=== PATIENT | female | born 1990 | race African-American/Black ===

== ENCOUNTER 2018-04-08 17:43 | Outpatient (CLI) | payer MEDICAID ==
[2018-04-08 18:33] LABS: APPEARANCE,URINE SLIGHTLY-CLOUDY; BILIRUBIN,URINE NEGATIVE (NEGATIVE); COLOR,URINE YELLOW; GLUCOSE, URINE NEGATIVE (NEGATIVE); KETONES,URINE NEGATIVE (NEGATIVE); LEUKOCYTE ESTERASE,URINE NEGATIVE (NEGATIVE); NITRITE,URINE NEGATIVE (NEGATIVE); PROTEIN,URINE 30 mg/dL (NEGATIVE); URINE AMPHETAMINES SCREEN NEGATIVE; URINE BARBITURATES SCREEN NEGATIVE; URINE BENZODIAZEPINES SCREEN NEGATIVE; URINE COCAINE SCREEN NEGATIVE; URINE MARIJUANA (THC) SCREEN NEGATIVE; URINE METHADONE SCREEN NEGATIVE; URINE PHENCYCLIDINE SCREEN NEGATIVE; URINE SPECIFIC GRAVITY 1.031
[2018-04-08] MEDS ORDERED: ACETAMINOPHEN 650 MG SUPP.RECT PR ONE (18:38)
[2018-04-08] MEDS ORDERED: ACETAMINOPHEN 325 MG TABLET ONE (18:40)
[2018-04-08] MEDS ORDERED: ACETAMINOPHEN 325 MG TABLET PO ONE (18:44)
== END 2018-04-08 20:14 | disposition home or self-care (01) ==
LOC: LC 17:43
PROVIDERS: ATTEND Obstetrics & Gynecology
PROC: 4A1HXCZ Monitoring of Products of Conception, Cardiac Rate, External Approach (ICD-10-PCS; principal; 2018-04-08)
DX: O99.282 Endocrine, nutritional and metabolic diseases complicating pregnancy, second trimester (principal); E86.0 Dehydration; R10.9 Unspecified abdominal pain; Z3A.20 20 weeks gestation of pregnancy; Z91.81 History of falling
CPT/HCPCS: 59899; 81001; 80307; J3490

== ENCOUNTER 2018-05-25 19:26 | Outpatient (CLI) | payer OTHER, MEDICAID ==
[2018-05-25 20:31] LABS: APPEARANCE,URINE SLIGHTLY-CLOUDY; BILIRUBIN,URINE NEGATIVE (NEGATIVE); CALCIUM OXALATE CRYSTALS,URINE MODERATE /HPF; COLOR,URINE YELLOW; GLUCOSE, URINE 50 mg/dL (NEGATIVE); KETONES,URINE NEGATIVE (NEGATIVE); LEUKOCYTE ESTERASE,URINE NEGATIVE (NEGATIVE); NITRITE,URINE NEGATIVE (NEGATIVE); PROTEIN,URINE NEGATIVE (NEGATIVE); URINE SPECIFIC GRAVITY 1.029
[2018-05-25 21:01] LABS: URINE AMPHETAMINES SCREEN NEGATIVE; URINE BARBITURATES SCREEN NEGATIVE; URINE BENZODIAZEPINES SCREEN NEGATIVE; URINE COCAINE SCREEN NEGATIVE; URINE MARIJUANA (THC) SCREEN NEGATIVE; URINE METHADONE SCREEN NEGATIVE; URINE PHENCYCLIDINE SCREEN NEGATIVE
--- NOTE | 2018-05-25 22:46 | RADIOLOGY REPORT (SQ) ---
EXAM DESCRIPTION: US LIMITED COMPLETED DATE/TME: 05/25/2018 00:00 CLINICAL HISTORY: 27 years, Female, cervical length FINDINGS: LEONOR equals 10.1 cm. heart rate is 155 bpm. Single viable IUP is noted. Cervix measures 3.5 cm and demonstrates funneling. 2011 [employer]- All Rights Reserved
[2018-05-25] MEDS ORDERED: BETAMET ACET/BETAMET NA INJ 6 MG/1 ML ONE (23:46)
[2018-05-25] MEDS ORDERED: BETAMET ACET/BETAMET NA INJ 6 MG/1 ML IM ONE (23:55)
== END 2018-05-26 00:04 | disposition home or self-care (01) ==
LOC: LC 19:26
PROVIDERS: ATTEND Obstetrics & Gynecology
PROC: 4A1HXCZ Monitoring of Products of Conception, Cardiac Rate, External Approach (ICD-10-PCS; principal; 2018-05-25)
DX: O47.02 False labor before 37 completed weeks of gestation, second trimester (principal); Z3A.27 27 weeks gestation of pregnancy
CPT/HCPCS: 59899; 96372; 81001; 80307; 76815; J0702

== ENCOUNTER 2018-05-26 23:16 | Outpatient (CLI) | payer OTHER, MEDICAID ==
[2018-05-26] MEDS ORDERED: BETAMET ACET/BETAMET NA INJ 6 MG/1 ML ONE (23:19)
[2018-05-27] MEDS ORDERED: BETAMET ACET/BETAMET NA INJ 6 MG/1 ML IM ONE
== END 2018-05-27 00:44 | disposition home or self-care (01) ==
LOC: LC 23:16
PROVIDERS: ATTEND Obstetrics & Gynecology
PROC: 4A1HXCZ Monitoring of Products of Conception, Cardiac Rate, External Approach (ICD-10-PCS; principal; 2018-05-26)
DX: O47.02 False labor before 37 completed weeks of gestation, second trimester (principal); Z3A.27 27 weeks gestation of pregnancy
CPT/HCPCS: 96372; 59899; J0702

== ENCOUNTER 2018-05-27 14:56 | Emergency (ER) | payer OTHER, MEDICAID ==
--- NOTE | 2018-05-27 15:57 | ER Document Report ---
ED Medical Screen (RME) - General Chief Complaint: Shortness Of Breath Stated Complaint: SHORTNESS OF BREATH Time Seen by Provider: 05/27/18 15:07 Notes: 27-year-old female patient to the emergency department chief complaint of shortness of breath. Is . History of asthma. Received a shot yesterday but not getting any better. I have greeted and performed a rapid initial assessment of this patient. A comprehensive ED assessment and evaluation of the patient, analysis of test results and completion of the medical decision making process will be conducted by additional ED providers. TRAVEL OUTSIDE OF THE [place] IN LAST 30 DAYS: No - Related Data Allergies/Adverse Reactions: banana Allergy (Verified 05/25/18 21:00) [place] And Derivatives Allergy (Verified 05/27/18 14:57) latex Allergy (Verified 05/25/18 21:00) peanut Allergy (Verified 05/25/18 21:00) pineapple Allergy (Verified 05/27/18 14:57) tomato Allergy (Verified 05/25/18 21:00) Physical Exam - Vital signs Vitals: Temp Pulse Resp BP Pulse Ox 97.5 F 90 20 118/62 96 05/27/18 15:07 05/27/18 15:07 05/27/18 15:07 05/27/18 15:07 05/27/18 15:07 Course - Vital Signs Vital signs: Temp Pulse Resp BP Pulse Ox 97.5 F 90 20 118/62 96 05/27/18 15:07 05/27/18 15:07 05/27/18 15:07 05/27/18 15:07 05/27/18 15:07 Doctor's Discharge - Discharge Referrals: HARI GODOY MD [Primary Care Provider] - Follow up as needed
[2018-05-27 16:26] LABS: ABSOLUTE LYMPHOCYTES (AUTO) 1.3 10^3/uL (0.5-4.7); ABSOLUTE MONOCYTES (AUTO) 1.6 10^3/uL (0.1-1.4); ABSOLUTE NEUT (AUTO) 16.4 10^3/uL (1.7-8.2); HEMATOCRIT 31.2 % (36.0-47.0); HEMOGLOBIN 10.4 g/dL (12.0-15.5); LYMPHOCYTES % (AUTO) 6.7 % (13-45); MEAN CORPUSCULAR HEMOGLOBIN 26.5 pg (27.0-33.4); MEAN CORPUSCULAR HGB CONC 33.5 g/dL (32.0-36.0); MEAN CORPUSCULAR VOLUME 79 fl (80-97); MONOCYTES % (AUTO) 8.2 % (3-13); PLATELET COUNT 250 10^3/uL (150-450); RED BLOOD COUNT 3.93 10^6/uL (3.72-5.28); SEGMENTED NEUTROPHILS % (AUTO) 85.1 % (42-78); TOTAL CELLS COUNTED % (AUTO) 100 %; WHITE BLOOD COUNT 19.3 10^3/uL (4.0-10.5)
[2018-05-27 16:43] LABS: ALANINE AMINOTRANSFERASE 19 U/L (9-52); ALBUMIN 3.6 g/dL (3.5-5.0); ALKALINE PHOSPHATASE 81 U/L (38-126); ANION GAP 12 (5-19); ASPARTATE AMINO TRANSFERASE 22 U/L (14-36); BILIRUBIN,DIRECT 0.2 mg/dL (0.0-0.4); BILIRUBIN,TOTAL 0.3 mg/dL (0.2-1.3); BLOOD UREA NITROGEN 8 mg/dL (7-20); CALCIUM 9.1 mg/dL (8.4-10.2); CARBON DIOXIDE 21 mmol/L (22-30); CHLORIDE 107 mmol/L (98-107); GLUCOSE 108 mg/dL (75-110); SODIUM 139.5 mmol/L (137-145); TOTAL PROTEIN 7.5 g/dL (6.3-8.2)
[2018-05-27] MEDS ORDERED: DEXTROSE 5%-1/2 NORMAL SALINE 1,000 ML IV ONE (18:34)
--- NOTE | 2018-05-27 18:35 | ER Document Report ---
ED Respiratory Problem - General Chief Complaint: Shortness Of Breath Stated Complaint: SHORTNESS OF BREATH Time Seen by Provider: 05/27/18 15:07 Mode of Arrival: Ambulatory Information source: Patient TRAVEL OUTSIDE OF THE [place] IN LAST 30 DAYS: No - HPI Patient complains to provider of: Other - 27-year-old that is currently 27 weeks and 5 days presenting for evaluation of shortness of breath which is developed over the last 2 days after receiving an injection of a steroid for her fetus. She notes some tightness associated with this in the chest but no obvious pain no leg swelling no lightheadedness or diaphoresis no cramps in the abdomen vaginal bleeding dysuria or other obvious symptoms. She is never had anything like this in the past. - Related Data Allergies/Adverse Reactions: banana Allergy (Verified 05/25/18 21:00) [place] And Derivatives Allergy (Verified 05/27/18 14:57) latex Allergy (Verified 05/25/18 21:00) peanut Allergy (Verified 05/25/18 21:00) pineapple Allergy (Verified 05/27/18 14:57) tomato Allergy (Verified 05/25/18 21:00) Past Medical History - General Information source: Patient - Social History Smoking Status: Never Smoker Family History: None Patient has suicidal ideation: No Patient has homicidal ideation: No Pulmonary Medical History: Reports: Hx Asthma Renal/ Medical History: Denies: Hx Peritoneal Dialysis Past Surgical History: Reports: Hx Section, Hx Tonsillectomy Review of Systems - Review of Systems -: Yes All other systems reviewed and negative Physical Exam - Vital signs Vitals: Temp Pulse Resp BP Pulse Ox 97.5 F 90 20 118/62 96 05/27/18 15:07 05/27/18 15:07 05/27/18 15:07 05/27/18 15:07 05/27/18 15:07 - General General appearance: Appears well In distress: None - HEENT Head: Normocephalic Eyes: Normal Conjunctiva: Normal Cornea: Normal Extraocular movements intact: Yes Eyelashes: Normal Pupils: PERRL - Respiratory Respiratory status: No respiratory distress Chest status: Nontender Breath sounds: Normal Chest palpation: Normal - Cardiovascular Rhythm: Regular Heart sounds: Normal auscultation Murmur: No - Abdominal Inspection: Gravid female - Back Back: Normal - Extremities General upper extremity: Normal inspection, Nontender, Normal ROM, Normal strength General lower extremity: Normal inspection, Nontender, Normal ROM, Normal strength - Neurological Neuro grossly intact: Yes Cognition: Normal Orientation: AAOx4 Susi Coma Scale Eye Opening: Spontaneous [place] Coma Scale Verbal: Oriented [place] Coma Scale Motor: Obeys Commands [place] Coma Scale Total: 15 Speech: Normal Cranial nerves: Normal Cerebellar coordination: Normal Motor strength normal: LUE, RUE, LLE, RLE - Psychological Associated symptoms: Normal affect Course - Re-evaluation Re-evalutation: 05/28/18 04:29 27-year-old female presents for evaluation of shortness of breath. Through triage she had ultrasounds of the lower extremities ordered, blood work ordered. On exam she does demonstrate some dyspnea, this is her second presentation for this concern. She does have a leukocytosis which is appreciable on her CBC though this is likely result of her having received 2 steroid shots in the last 2 days. Her work of breathing is normal she is able to speak in full sentences however due to the concern of an underlying PE will obtain a CT PE protocol. Patient's Dopplers of lower extremities are normal, her lab work is otherwise reassuring. She did note that she had decreased movements however on bedside ultrasound the baby does seem to move appropriately and has a regular heart rate at approximately [address] of the chest does not demonstrate any pulmonary embolus. 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 - Vital Signs Vital signs: Temp Pulse Resp BP Pulse Ox 97.9 F 90 19 113/64 99 05/27/18 22:33 05/27/18 15:07 05/27/18 22:33 05/27/18 22:33 05/27/18 22:33 - Laboratory Result Diagrams: 05/27/18 16:12 05/27/18 16:12 Laboratory results interpreted by me: 05/27/18 05/27/18 05/27/18 16:12 16:12 19:46 WBC 19.3 H Hgb 10.4 L Hct 31.2 L MCV 79 L MCH 26.5 L Seg Neutrophils % 85.1 H Lymphocytes % 6.7 L Absolute Neutrophils 16.4 H Absolute Monocytes 1.6 H Carbon Dioxide 21 L Urine Glucose (UA) 50 H Urine Urobilinogen 2.0 H Discharge - Discharge Clinical Impression: Shortness of breath Qualifiers: Weeks of gestation: 27 weeks Qualified Code(s): Z3A.27 - 27 weeks gestation of Decreased movement Qualifiers: Fetus number: single or unspecified fetus Trimester: second trimester Qualified Code(s): O36.8120 - Decreased movements, second trimester, not applicable or unspecified Condition: Good Disposition: HOME, SELF-CARE Instructions: Dyspnea, Nonspecific ([facility]) Additional Instructions: You were seen today in the emergency department for shortness of breath, and evaluation including a physical exam as well as a CT of your chest and other blood tests. You should call your OB doctor tomorrow for a follow-up appointment. Return for any worsening fevers or chills, chest pain, inability to breathe or other symptoms. Forms: Parent Work Note Referrals: HARI GODOY MD [Primary Care Provider] - Follow up as needed
[2018-05-27 20:08] LABS: APPEARANCE,URINE SLIGHTLY-CLOUDY; BILIRUBIN,URINE NEGATIVE (NEGATIVE); COLOR,URINE YELLOW; GLUCOSE, URINE 50 mg/dL (NEGATIVE); KETONES,URINE NEGATIVE (NEGATIVE); LEUKOCYTE ESTERASE,URINE NEGATIVE (NEGATIVE); NITRITE,URINE NEGATIVE (NEGATIVE); PROTEIN,URINE NEGATIVE (NEGATIVE); URINE SPECIFIC GRAVITY 1.019
--- NOTE | 2018-05-27 20:28 | RADIOLOGY REPORT (SQ) ---
EXAM DESCRIPTION: CTA CHEST COMPLETED DATE/TIME: 05/27/2018 8:15 pm REASON FOR STUDY: short of breath COMPARISON: None. TECHNIQUE: CT scan of the chest performed using helical scanning technique with dynamic intravenous contrast injection. Images reviewed with lung, soft tissue and bone windows. Reconstructed coronal and sagittal MPR images reviewed. Additional 3 dimensional post-processing performed to develop Maximal Intensity Projection images (CA P). All images stored on PACS. All CT scanners at this facility use dose modulation, iterative reconstruction, and/or weight based d osing when appropriate to reduce radiation dose to as low as reasonably achievable (ALARA). [facility]: Dose Right [facility]: CareDose [facility]: Dose Right [facility]: Teradose 4D [facility]: 8 [employer] CONTRAST TYPE AND DOSE: contrast/concentration: Isovue 350.00 mg/ml; Total Contrast Delivered: 75.0 ml; Total Saline Delivered: 70.0 ml Contrast bolus optimized for the pulmonary arteries. Not diagnostic for the aorta. RENAL FUNCTION: BUN 8 creatinine 0.6 RADIATION DOSE: CT Rad equipment meets quality standard of care and radiation dose reduction techniq ues were employed. CTDIvol: 9.9 - 24.0 mGy. DLP: 746 mGy-cm. . LIMITATIONS: None. FINDINGS: LUNGS AND PLEURA: No masses, infiltrates, or pneumothorax. No pleural effusions or pleura l calcifications. AORTA AND GREAT VESSELS: No aneurysm. Contrast bolus not optimized for the aorta. HEART: No pericardial effusion. No significant coronary artery calcifications. PULMONARY ARTERIES: No emboli visualized in the main pulmonary arteries or the segmental branches. HILAR AND MEDIASTINAL STRUCTURES: No identified masses or abnormal nodes. HARDWARE: None in the chest. UPPER ABDOMEN: No significant findings. Limited exam. THYROID AND OTHER SOFT TISSUES: No masses. No adenopathy. BONES: No acute or significant finding. 3D MIPS: Confirm above findings. OTHER: No other significant finding. IMPRESSION: NORMAL CTA OF THE CHEST. NO PULMONARY EMBOLI. COMMENT: Quality ID # [id number]: Final reports with documentation of one or more dose reduction techniques (e.g., Automated exposure control, adjustment of the mA and/or kV according to patient size, use of iterative reconstruction technique) TECHNICAL DOCUMENTATION: JOB ID: [id number] 1944 [employer]- All Rights Reserved Reading location - IP/workstation name: [email or web address]
[2018-05-27 22:39] VITALS: BP 113/64
--- NOTE | 2018-05-28 08:28 | XCELERA REPORT ---
[address] [facility] [address] Lower Extremity Venous Evaluation Procedure: Color flow and duplex imaging bilaterally of the veins of the lower extremities as well as the Common Femoral veins. Right Sided Venous Evaluation Normal vessel filling wall to wall, compression and augmentation as well as Colour flow down to the infrageniculate veins. Left Sided Venous Evaluation Normal vessel filling wall to wall, compression and augmentation as well as Colour flow down to the infrageniculate veins. Interpretation Summary No duplex evidence of DVT or obstruction in the bilateral lower extremities. Name: KAIN ALMODOVAR Age: 27 yrs Gender: Female : 1990 Patient Status: Emergency Patient Location: ER Study Date: 05/27/2018 06:48 PM Reason For Study: valarie campuzano Ordering Physician: DOREEN TALBOT Performed By: Alicia Oconnell : DOREEN TALBOT > Ryan Hector
== END 2018-05-27 22:42 | disposition home or self-care (01) ==
LOC: ER 14:56
DX: O99.512 Diseases of the respiratory system complicating pregnancy, second trimester (principal); J45.909 Unspecified asthma, uncomplicated; O26.892 Other specified pregnancy related conditions, second trimester; R06.02 Shortness of breath; R07.89 Other chest pain; O36.8120 Decreased fetal movements, second trimester, not applicable or unspecified; Z3A.25 25 weeks gestation of pregnancy; O99.112 Other diseases of the blood and blood-forming organs and certain disorders involving the immune mechanism complicating pregnancy, second trimester; D72.829 Elevated white blood cell count, unspecified; Z91.018 Allergy to other foods; Z91.040 Latex allergy status; Z91.010 Allergy to peanuts
CPT/HCPCS: 36415; 71275; 80053; 81001; 85025; 93970; 96360; 99285

== ENCOUNTER 2018-06-14 20:16 | Outpatient (CLI) | payer OTHER, MEDICAID ==
[2018-06-14 20:56] LABS: APPEARANCE,URINE SLIGHTLY-CLOUDY; BILIRUBIN,URINE NEGATIVE (NEGATIVE); COLOR,URINE YELLOW; GLUCOSE, URINE NEGATIVE (NEGATIVE); KETONES,URINE NEGATIVE (NEGATIVE); LEUKOCYTE ESTERASE,URINE NEGATIVE (NEGATIVE); NITRITE,URINE NEGATIVE (NEGATIVE); PROTEIN,URINE NEGATIVE (NEGATIVE); URINE SPECIFIC GRAVITY 1.023
[2018-06-14] MEDS ORDERED: ACETAMINOPHEN 325 MG TABLET PO ONE (21:03)
[2018-06-14 21:10] LABS: URINE AMPHETAMINES SCREEN NEGATIVE; URINE BARBITURATES SCREEN NEGATIVE; URINE BENZODIAZEPINES SCREEN NEGATIVE; URINE COCAINE SCREEN NEGATIVE; URINE MARIJUANA (THC) SCREEN NEGATIVE; URINE METHADONE SCREEN NEGATIVE; URINE PHENCYCLIDINE SCREEN NEGATIVE
[2018-06-14] MEDS ORDERED: ACETAMINOPHEN 325 MG TABLET ONE ×3 (21:12→21:13)
== END 2018-06-14 21:53 | disposition home or self-care (01) ==
LOC: LC 20:16
PROVIDERS: ATTEND Obstetrics & Gynecology
PROC: 4A1HXCZ Monitoring of Products of Conception, Cardiac Rate, External Approach (ICD-10-PCS; principal; 2018-06-14)
DX: O47.03 False labor before 37 completed weeks of gestation, third trimester (principal); O21.2 Late vomiting of pregnancy; Z3A.30 30 weeks gestation of pregnancy
CPT/HCPCS: 80307; 81001

== ENCOUNTER 2018-07-12 20:12 | Emergency (ER) | payer OTHER, MEDICAID ==
[2018-07-12] MEDS ORDERED: MECLIZINE HCL 25 MG TABLET PO ONE (20:38)
--- NOTE | 2018-07-12 20:39 | ER Document Report ---
ED Medical Screen (RME) - General Chief Complaint: Headache Stated Complaint: DIZZY/HEADACHE Time Seen by Provider: 07/12/18 20:33 Notes: 27-year-old female patient who is 34 weeks . She reports onset last night of dizziness. She notes it is worse when she lays down. She states it feels like when you are trying to get drunk and things are spinning. I had the patient follow my finger with her eyes and noted some slight lateral gaze nystagmus. I had her look up and down and side to side rapidly and she looked at me wanting to know "what are you doing that for". It provokes the dizziness and made the room spin and increased her nystagmus. She will be given a dose of meclizine and moved to the pod 5 for further evaluation once the medicine starts to work. I have greeted and performed a rapid initial assessment of this patient. A comprehensive ED assessment and evaluation of the patient, analysis of test results and completion of the medical decision making process will be conducted by additional ED providers. TRAVEL OUTSIDE OF THE [place] IN LAST 30 DAYS: No - Related Data Allergies/Adverse Reactions: banana Allergy (Verified 07/12/18 20:14) [place] And Derivatives Allergy (Verified 07/12/18 20:14) latex Allergy (Verified 07/12/18 20:14) peanut Allergy (Verified 07/12/18 20:14) pineapple Allergy (Verified 07/12/18 20:14) tomato Allergy (Verified 07/12/18 20:14) Past Medical History - Social History Frequency of alcohol use: None Pulmonary Medical History: Reports: Hx Asthma Renal/ Medical History: Denies: Hx Peritoneal Dialysis Past Surgical History: Reports: Hx Section, Hx Tonsillectomy Physical Exam - Vital signs Vitals: Temp Pulse Resp BP Pulse Ox 98.4 F 91 18 117/61 95 07/12/18 20:22 07/12/18 20:22 07/12/18 20:22 07/12/18 20:22 07/12/18 20:22 Course - Vital Signs Vital signs: Temp Pulse Resp BP Pulse Ox 98.4 F 91 18 117/61 95 07/12/18 20:22 07/12/18 20:22 07/12/18 20:22 07/12/18 20:22 07/12/18 20:22 Doctor's Discharge - Discharge Referrals: TIKA RUIZ MD [Primary Care Provider] - Follow up as needed
[2018-07-12] MEDS ORDERED: METOCLOPRAMIDE HCL INJ/PF 10 MG/2 ML SDV IV ONE (20:57)
[2018-07-12] MEDS ORDERED: NORMAL SALINE 1000 ML 1,000 ML IV ONE (20:57)
--- NOTE | 2018-07-12 21:37 | ER Document Report ---
ED Headache - General Chief Complaint: Headache Stated Complaint: DIZZY/HEADACHE Time Seen by Provider: 07/12/18 20:33 Notes: Patient is a 27-year old female at 34 weeks who presents with complaints of a global headache and associated vertigo. The patient states that the headache was a gradual onset headache and is a throbbing, aching, constant, bitemporal headache. She notes that with a headache she has had a mild sensation of vertigo. States that she has had similar symptoms in the past both in terms of the headache as well as having vertigo with headaches. She has been nauseated but has not vomited. She denies any associated weakness, numbness, fever, constitutional symptoms or confusion. No head trauma. She has not seen her general doctor regarding today's concerns. She denies that this headache is more severe than headaches she has had in the past. TRAVEL OUTSIDE OF THE [place] IN LAST 30 DAYS: No - Related Data Allergies/Adverse Reactions: banana Allergy (Verified 07/12/18 20:14) [place] And Derivatives Allergy (Verified 07/12/18 20:14) latex Allergy (Verified 07/12/18 20:14) peanut Allergy (Verified 07/12/18 20:14) pineapple Allergy (Verified 07/12/18 20:14) tomato Allergy (Verified 07/12/18 20:14) Past Medical History - General Information source: Patient - Social History Smoking Status: Never Smoker Frequency of alcohol use: None Drug Abuse: None Lives with: Family Family History: Reviewed & Not Pertinent Patient has suicidal ideation: No Patient has homicidal ideation: No Pulmonary Medical History: Reports: Hx Asthma Renal/ Medical History: Denies: Hx Peritoneal Dialysis Past Surgical History: Reports: Hx Section, Hx Tonsillectomy Review of Systems - Review of Systems Notes: Constitutional: Negative for fever. HENT: Negative for sore throat. Eyes: Negative for visual changes. Cardiovascular: Negative for chest pain. Respiratory: Negative for shortness of breath. Gastrointestinal: Negative for abdominal pain, vomiting or diarrhea. Genitourinary: Negative for dysuria. Musculoskeletal: Negative for back pain. Skin: Negative for rash. Neurological: Positive for headache and vertigo 10 point ROS negative except as marked above and in HPI. Physical Exam - Vital signs Vitals: Temp Pulse Resp BP Pulse Ox 98.4 F 91 18 117/61 95 07/12/18 20:22 07/12/18 20:22 07/12/18 20:22 07/12/18 20:22 07/12/18 20:22 Interpretation: Normal Notes: PHYSICAL EXAMINATION: GENERAL: Well-appearing, well-nourished and in no acute distress. HEAD: Atraumatic, normocephalic. EYES: Pupils equal round and reactive to light, extraocular movements intact, sclera anicteric, conjunctiva are normal. ENT: nares patent, oropharynx clear without exudates. Moist mucous membranes. NECK: Normal range of motion, supple without lymphadenopathy LUNGS: Breath sounds clear to auscultation bilaterally and equal. No wheezes rales or rhonchi. HEART: Regular rate and rhythm without murmurs ABDOMEN: Soft, gravid uterus, nontender, normoactive bowel sounds. No guarding , no rebound. No masses appreciated. EXTREMITIES: Normal range of motion, no pitting or edema. No cyanosis. NEUROLOGICAL: Face symmetric. Tongue protrudes midline. Extraocular motions intact. Pupils are 2 mm and equally reactive. Normal speech, normal gait. 5 out of 5 strength in both the distal and proximal upper and lower extremities bilaterally. Sensation is grossly intact throughout. Finger to nose testing normal. Pronator drift normal. PSYCH: Normal mood, normal affect. SKIN: Warm, Dry, normal turgor, no rashes or lesions noted. Course - Re-evaluation Re-evalutation: 07/12/18 21:37 Presentation of a headache that appears to be most consistent with tension versus migrainous type headache. Patient does report some mild associated vertigo which she has had in the past with headaches. Headache was not maximal in onset, patient has no focal neurologic deficits, no nuchal rigidity, vital signs within normal limits, no papilledema, and patient is overall well in appearance. Based on clinical history and examination I do not suspect an acute subarachnoid hemorrhage, dural venous sinus thrombosis, acute meningitis, or intercranial mass. Given my low clinical suspicion for any acute life- threatening etiology, I do not feel advanced neuro imaging or laboratory testing is indicated at this time. Will proceed with headache cocktail and reassess. 07/12/18 22:35 Patient has had complete resolution of her headache and vertigo. Remains without any neurologic deficits. Requesting to go home. At this time will discharge with return precautions and follow-up recommendations. Verbal discharge instructions given a the bedside and opportunity for questions given. Medication warnings reviewed. Patient is in agreement with this plan and has verbalized understanding of return precautions and the need for primary care follow-up in the next 24-72 hours. - Vital Signs Vital signs: Temp Pulse Resp BP Pulse Ox 98.4 F 78 16 105/54 L 99 07/12/18 20:22 07/12/18 22:00 07/12/18 22:00 07/12/18 22:00 07/12/18 22:00 Discharge - Discharge Clinical Impression: Third trimester , Vertigo Headache Qualifiers: Headache type: unspecified Headache chronicity pattern: acute headache Intractability: not intractable Qualified Code(s): R51 - Headache Condition: Good Disposition: HOME, SELF-CARE Additional Instructions: You have been seen in the Emergency Department (ED) for a headache. Please use Tylenol (acetaminophen) as needed for symptoms, but only as written on the box. As we have discussed, please follow up with your primary care doctor as soon as possible regarding today's ED visit and your headache symptoms. Call your doctor or return to the ED if you have a worsening headache, sudden and severe headache, confusion, slurred speech, facial droop, weakness or numbness in any arm or leg, extreme fatigue, or other symptoms that concern you. Referrals: TIKA RUIZ MD [Primary Care Provider] - Follow up as needed
[2018-07-12 23:12] VITALS: BP 105/54
== END 2018-07-12 22:55 | disposition home or self-care (01) ==
LOC: ER 20:12
DX: O26.93 Pregnancy related conditions, unspecified, third trimester (principal); R51 Headache; R42 Dizziness and giddiness; Z3A.34 34 weeks gestation of pregnancy
CPT/HCPCS: 99284; 96361; 96374; J2765; J7030

== ENCOUNTER 2018-08-04 14:25 | Outpatient (CLI) | payer OTHER, MEDICAID ==
[2018-08-04 16:05] LABS: ABSOLUTE EOSINOPHILS # (AUTO) 0.1 10^3/uL (0.0-0.6); ABSOLUTE LYMPHOCYTES (AUTO) 1.7 10^3/uL (0.5-4.7); ABSOLUTE MONOCYTES (AUTO) 0.7 10^3/uL (0.1-1.4); ABSOLUTE NEUT (AUTO) 4.8 10^3/uL (1.7-8.2); BASOPHILS % (AUTO) 0.1 % (0-2); EOSINOPHILS % (AUTO) 1.4 % (0-6); HEMATOCRIT 29.5 % (36.0-47.0); HEMOGLOBIN 9.5 g/dL (12.0-15.5); LYMPHOCYTES % (AUTO) 22.8 % (13-45); MEAN CORPUSCULAR HEMOGLOBIN 24.8 pg (27.0-33.4); MEAN CORPUSCULAR HGB CONC 32.1 g/dL (32.0-36.0); MEAN CORPUSCULAR VOLUME 77 fl (80-97); MONOCYTES % (AUTO) 9.6 % (3-13); PLATELET COUNT 216 10^3/uL (150-450); RED BLOOD COUNT 3.81 10^6/uL (3.72-5.28); RED CELL DISTRIBUTION WIDTH 15.4 % (11.5-14.0); SEGMENTED NEUTROPHILS % (AUTO) 66.1 % (42-78); TOTAL CELLS COUNTED % (AUTO) 100 %; WHITE BLOOD COUNT 7.3 10^3/uL (4.0-10.5)
[2018-08-04 16:15] LABS: ALANINE AMINOTRANSFERASE 12 U/L (9-52); ALBUMIN 3.3 g/dL (3.5-5.0); ALKALINE PHOSPHATASE 117 U/L (38-126); ANION GAP 9 (5-19); ASPARTATE AMINO TRANSFERASE 23 U/L (14-36); BILIRUBIN,DIRECT 0.2 mg/dL (0.0-0.4); BILIRUBIN,TOTAL 0.2 mg/dL (0.2-1.3); BLOOD UREA NITROGEN 7 mg/dL (7-20); CARBON DIOXIDE 25 mmol/L (22-30); CHLORIDE 105 mmol/L (98-107); GLUCOSE 113 mg/dL (75-110); POTASSIUM 3.8 mmol/L (3.6-5.0); SODIUM 138.8 mmol/L (137-145); TOTAL PROTEIN 6.7 g/dL (6.3-8.2); URIC ACID 3.9 mg/dL (2.5-6.2)
[2018-08-04 16:24] LABS: APPEARANCE,URINE CLEAR; BILIRUBIN,URINE NEGATIVE (NEGATIVE); COLOR,URINE STRAW; GLUCOSE, URINE NEGATIVE (NEGATIVE); KETONES,URINE NEGATIVE (NEGATIVE); LEUKOCYTE ESTERASE,URINE NEGATIVE (NEGATIVE); NITRITE,URINE NEGATIVE (NEGATIVE); PROTEIN,URINE NEGATIVE (NEGATIVE); URINE SPECIFIC GRAVITY 1.003; UROBILINOGEN,URINE NEGATIVE mg/dL (<2.0)
[2018-08-04] MEDS ORDERED: ACETAMINOPHEN 325 MG TABLET ONE (16:31)
[2018-08-04] MEDS ORDERED: ACETAMINOPHEN 325 MG TABLET PO ONE (16:34)
[2018-08-04 16:44] LABS: URINE AMPHETAMINES SCREEN NEGATIVE; URINE BARBITURATES SCREEN NEGATIVE; URINE BENZODIAZEPINES SCREEN NEGATIVE; URINE COCAINE SCREEN NEGATIVE; URINE MARIJUANA (THC) SCREEN NEGATIVE; URINE METHADONE SCREEN NEGATIVE; URINE PHENCYCLIDINE SCREEN NEGATIVE
[2018-08-04 16:54] LABS: UR PRO/CREAT RATIO RESULT 0.7 mg/mg (0.0-0.2); URINE CREATININE 23.8 mg/dL (16-327); URINE PROTEIN 16.2 mg/dL (<12)
== END 2018-08-04 17:45 | disposition home or self-care (01) ==
LOC: LC 14:25
PROVIDERS: ATTEND Obstetrics & Gynecology
PROC: 4A1HXCZ Monitoring of Products of Conception, Cardiac Rate, External Approach (ICD-10-PCS; principal; 2018-08-04)
DX: O16.3 Unspecified maternal hypertension, third trimester (principal); Z3A.37 37 weeks gestation of pregnancy
CPT/HCPCS: 36415; 59025; 80053; 80307; 81005; 82570; 83615; 84156; 84550; 85025

== ENCOUNTER 2018-08-05 17:37 | Inpatient (IN) | payer OTHER, MEDICAID ==
--- NOTE | 2018-08-05 17:44 | Non Stress Test Report ---
Non Stress Test Datetime Report Generated by CPN: 08/05/2018 17:44 DEMOGRAPHIC EGA NST: 37.2 INDICATION Indication for Study: Other Indication for Study (NST) Other: LC MONITORING Monitor Explained: Monitor Explained; Test Explained; Patient Verbalized Understanding Time on Monitor: 08/04/2018 14:55 Time off Monitor: 08/04/2018 15:26 NST Duration: 31 NST INTERVENTIONS NST Interventions: PO Hydration Physician Notified NST: J Kaur CNM BABY A: [id number] BABY A Movement : Present Contraction Frequency : rare FHR Baseline : 135 Accelerations : 15X15 Decelerations : None Variability : Moderate 6-25bpm NST Review: Meets Criteria for Reactive NST NST Review and Verified By : ALEXSANDER ORTEGA, RN NST Results: Reactive NST REPORT Report Trigger: Send Report
[2018-08-05 18:16] LABS: URINE PROTEIN 15.1 mg/dL (<12)
[2018-08-05 18:21] LABS: 24 HOUR URINE PROTEIN RESULT 477 mg/day (42-225)
--- NOTE | 2018-08-05 18:21 | Non Stress Test Report ---
Non Stress Test Datetime Report Generated by CPN: 08/05/2018 18:21 DEMOGRAPHIC EGA NST: 37.3 INDICATION Indication for Study: Ordered by Provider MONITORING Monitor Explained: Monitor Explained; Test Explained; Patient Verbalized Understanding Time on Monitor: 08/05/2018 17:47 Time off Monitor: 08/05/2018 18:12 NST Duration: 25 NST INTERVENTIONS NST Interventions: PO Hydration Physician Notified NST: Dr Younger BABY A Movement : Present Contraction Frequency : x1 FHR Baseline : 135 Accelerations : 15X15 Decelerations : None Variability : Moderate 6-25bpm NST Review: Meets Criteria for Reactive NST NST Review and Verified By : JOSE Hess NST Results: Reactive NST REPORT Report Trigger: Send Report
--- NOTE | 2018-08-05 18:52 | Admission Physical ---
Datetime Report Generated by CPN: 08/05/2018 18:51 CURRENT ADMISSION Chief Complaint: Other Indication for Induction: Not Applicable; PreEclampsia Admit Impression : Term, Intrauterine ; Repeat Section Admit Impression- Other: Pre-eclampsia Admit Plan: Admit to Unit; Initiate Section Protocol ALLERGIES Medication Allergies: No Medication Allergies: [place] And Derivatives (08/04/2018); peanut (08/04/2018); pineapple (08/04/2018); banana (08/04/2018); latex (08/04/2018); tomato (08/04/2018) Latex: No Latex Allergies Food Allergies: Peanut butter, tomatoes, banana, pineapples, citrus, OBSTETRICAL HISTORY EDC: 08/23/2018 00:00 : 3 Para: 2 Term: 2 : 0 SAB: 0 IAB: 0 Ectopic: 0 Livin Cesareans: 2 VBACs: 0 Multiple Births: 0 Gestational Diabetes: No Rh Sensitization: No Incompetent Cervix: No ALY: No Infertility: No ART Treatment: No Uterine Anomaly: No IUGR: No Hx Previous C/S: Yes Macrosomia: No Hx Loss/Stillborn: No PIH: No Hx : No Placenta Previa/Abruption: No Depression/PP Depression: Yes PTL/PROM: No Post Hemorrhage: No Current Procedures: Ultrasound Obstetrical History Comments: G1 2010 41.5 boy 7lbs, 11 oz, scheduled G2 2013 40.1 boy, 7lbs, 11 oz, G3 current SEE RECORDS Alcohol: No Marijuana : No Cocaine: No Other Illicit Drugs: No Cigarettes: Never Smoker. 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 Heart Disease: No Hosp/Surgery: Yes Autoimmune Disorder: No Anesthetic Complications: No Kidney Disease: Yes Abnormal Pap Smear: No Neuro/Epilepsy: No Other Medical Diseases: No Hepatitis/Liver Disease: No Significant Family History: No Varicosities/Phlebitis: No Trauma/Violence : No Thyroid Dysfunction: No Medical History Comments: PPD after first baby, UTI (last one during this ); hospitalized for childbirth; needed D_C to remove mirena INFECTIOUS HISTORY Gonorrhea: No Genital Herpes: No Chlamydia: No Tuberculosis: No Syphilis: No Hepatitis: No HIV/AIDS Exposure: No Rash or Viral Illness: No HPV: No Infectious History Comments: trich x 2 this PHYSICAL EXAM General: Normal HEENT: Normal Neurologic: Normal Thyroid: Normal Heart: Normal Lungs: Normal Breast: Normal Back: Normal Abdomen: Normal Genitourinary Exam: Normal Extremities: Normal DTRs: Normal Pelvic Type: Adequate Vital Signs: Reviewed MEMBRANES Membranes: Intact FETUS A EGA: 37.3 Monitoring: External US FHR- Baseline: 140s Accelerations: 15X15 Decelerations: None FHR Category: Category I Admit Comment: Pt submitted her 24 hr urine, which was 477 mg of proteinuria. INFORMED CONSENT Informed Consent Obtained: Section Delivery Signature: with User ID: [email or web address]
--- NOTE | 2018-08-05 18:55 | L&D Progress Notes ---
PROGRESS NOTES Datetime Report Generated by CPN: 08/05/2018 18:54 PROGRESS NOTE Impression: Eclampsia - Mild Plan: Deliver- Section Informed Consent Obtained: Section Delivery Vital Signs : Reviewed; Within Normal Limits Comment: Pt here today to submit her 24hr urine. She has had elevated BPs in the office. Today, her BP is normal. She is a repeat C/S. According to ACOG guidelines, she should be delivered at 37 weeks for an optimal outcome. Pt is agreeble to this plan and desires permanent sterilization. LAST VAGINAL EXAM-NURSING Dilitation: FT Effacement: Thick Station: High Contractions: Uterine Irritability Contractions: MEMBRANES Membranes: Intact FETUS A FHR - Baseline: 140s Monitoring: External US Variability: Moderate 6-25bpm Accelerations: 15X15 Decelerations: None FHR Category: Category I : 37.3 SIGNATURE SIGNATURE: [id number];[id number];[id number] SIGNATURE: [id number];[id number] SIGNATURE: [id number] SIGNATURE: [id number] Signature: with User ID: [email or web address]
[2018-08-05] MEDS ORDERED: CITRIC ACID/SODIUM CITRATE ORAL SOLN 15 ML UDCUP ONE (19:26)
[2018-08-05] MEDS ORDERED: CEFAZOLIN 2 GM/D5W RTU 2 GM/50 ML RTUPB IV ONE (19:26)
[2018-08-05] MEDS ORDERED: RINGERS SOLUTION,LACTATED 1,000 ML IV PRN ×2 (19:37→20:48)
[2018-08-05] MEDS ORDERED: CEFAZOLIN 2 GM/D5W RTU 2 GM/50 ML RTUPB IV PRN (19:37)
[2018-08-05] MEDS ORDERED: ONDANSETRON HCL INJ/PF 4 MG/2 ML SDV ONE (19:37)
[2018-08-05] MEDS ORDERED: CITRIC ACID/SODIUM CITRATE ORAL SOLN 15 ML UDCUP PO PRN (19:37)
[2018-08-05 19:38] LABS: ABSOLUTE EOSINOPHILS # (AUTO) 0.1 10^3/uL (0.0-0.6); ABSOLUTE LYMPHOCYTES (AUTO) 1.8 10^3/uL (0.5-4.7); ABSOLUTE MONOCYTES (AUTO) 0.9 10^3/uL (0.1-1.4); ABSOLUTE NEUT (AUTO) 5.3 10^3/uL (1.7-8.2); BASOPHILS % (AUTO) 0.1 % (0-2); EOSINOPHILS % (AUTO) 1.6 % (0-6); HEMATOCRIT 30.2 % (36.0-47.0); HEMOGLOBIN 9.6 g/dL (12.0-15.5); LYMPHOCYTES % (AUTO) 22.6 % (13-45); MEAN CORPUSCULAR HEMOGLOBIN 24.7 pg (27.0-33.4); MEAN CORPUSCULAR HGB CONC 31.8 g/dL (32.0-36.0); MEAN CORPUSCULAR VOLUME 78 fl (80-97); MONOCYTES % (AUTO) 10.8 % (3-13); PLATELET COUNT 213 10^3/uL (150-450); RED BLOOD COUNT 3.89 10^6/uL (3.72-5.28); RED CELL DISTRIBUTION WIDTH 15.8 % (11.5-14.0); SEGMENTED NEUTROPHILS % (AUTO) 64.9 % (42-78); TOTAL CELLS COUNTED % (AUTO) 100 %; WHITE BLOOD COUNT 8.1 10^3/uL (4.0-10.5)
[2018-08-05] MEDS ORDERED: ONDANSETRON HCL INJ/PF 4 MG/2 ML SDV IV ONE (19:38)
[2018-08-05 19:49] LABS: ALANINE AMINOTRANSFERASE 14 U/L (9-52); ALBUMIN 3.3 g/dL (3.5-5.0); ALKALINE PHOSPHATASE 116 U/L (38-126); ANION GAP 10 (5-19); ASPARTATE AMINO TRANSFERASE 26 U/L (14-36); BILIRUBIN,DIRECT 0.2 mg/dL (0.0-0.4); BILIRUBIN,TOTAL 0.2 mg/dL (0.2-1.3); BLOOD UREA NITROGEN 10 mg/dL (7-20); CALCIUM 9.4 mg/dL (8.4-10.2); CARBON DIOXIDE 23 mmol/L (22-30); CHLORIDE 106 mmol/L (98-107); GLUCOSE 123 mg/dL (75-110); POTASSIUM 4.1 mmol/L (3.6-5.0); SODIUM 139.2 mmol/L (137-145); TOTAL PROTEIN 6.8 g/dL (6.3-8.2); URIC ACID 3.8 mg/dL (2.5-6.2)
[2018-08-05] MEDS ORDERED: OXYTOCIN 10 UNIT/ML VIAL ONE (20:41)
[2018-08-05] MEDS ORDERED: FENTANYL CITRATE INJ/PF 100 MCG/2 ML AMPUL ONE ×2 (20:41→22:41)
[2018-08-05] MEDS ORDERED: BUPIVACAINE HCL/DEX-WATER/PF 15 MG/2 ML AMPULE ONE (20:41)
[2018-08-05] MEDS ORDERED: MIDAZOLAM 2 MG/2 ML INJ ONE (20:42)
[2018-08-05] MEDS ORDERED: OXYTOCIN/NORMAL SALINE 20 UNIT/1,000 ML RTUINJ ONE (20:42)
[2018-08-05] MEDS ORDERED: MORPHINE SULFATE 10 MG/ML INJ ONE ×2 (20:42→22:05)
[2018-08-05] MEDS ORDERED: OXYCODONE-ACETAMINOPHEN 5-325 MG TABLET PO PRN (20:48)
[2018-08-05] MEDS ORDERED: ACETAMINOPHEN 1,000 MG/100 ML RTUPB IV PRN (20:48)
[2018-08-05] MEDS ORDERED: SIMETHICONE 80 MG TAB.CHEW PO PRN (20:48)
[2018-08-05] MEDS ORDERED: ACETAMINOPHEN 325 MG TABLET PO PRN (20:48)
[2018-08-05] MEDS ORDERED: DIPH/PERTUSS(ACELL)/TETANUS VAC/PF 0.5 ML SYR (>=10YO) IM PRN (20:48)
[2018-08-05] MEDS ORDERED: PROMETHAZINE HCL INJ 25 MG/1 ML VIAL IV PRN ×3 (20:48→21:16)
[2018-08-05] MEDS ORDERED: MEASLES,MUMPS&RUBELLA VACC/PF 0.5 ML VIAL SUBCUT PRN (20:48)
[2018-08-05] MEDS ORDERED: OXYTOCIN/NORMAL SALINE 20 UNIT/1,000 ML RTUINJ IV PRN (20:48)
[2018-08-05] MEDS ORDERED: FENTANYL CITRATE INJ/PF 100 MCG/2 ML AMPUL IV PRN ×3 (21:16)
[2018-08-05] MEDS ORDERED: DIPHENHYDRAMINE HCL 50 MG/ML VIAL IV PRN (21:16)
[2018-08-05] MEDS ORDERED: MEPERIDINE HCL/PF INJ 25 MG/1 ML DISP.SYRIN IV PRN (21:16)
[2018-08-05] MEDS ORDERED: MORPHINE SULFATE 10 MG/ML INJ IV PRN (21:16)
--- NOTE | 2018-08-05 21:54 | PDOC DELIVERY SUMMARY ---
Delivery Summary - Maternal Hx : III Hx Para: II Hx # Term Pregnancies: 2 Hx # Pregnancies: 0 Hx Total # of Abortions (Sponateous & Elective): 0 Number of Living Children: 2 ARIEL: 08/23/18 Gestational Age: 37.3 Risk Factors: Previous , Pre-Eclampsia Intrapartum: Pre-Eclampsia Ruptured Membranes: AROM Fluids: Clear - Delivery Labor: Not In Labor Presentation: Vertex Heart Rate Monitoring: Done Pre-Operatively Uterine Contraction Monitoring: External Support Person Present: Yes Location: OR : Repeat Placenta: Within Normal Limits Placenta Description: Normal appearing Number of Vessels (Cord): 3 Nuchal Cord: Yes Delivery of Placenta Date: 08/05/18 Estimated Blood Loss: 600 ml Delivery Quantitative Blood Loss (QBL): 900 - Medications Type of Anesthesia:: Spinal - Delivery Personnel MD: YOBANI WILLIAMSON
[2018-08-05] MEDS ORDERED: KETOROLAC TROMETHAMINE INJ/PF 30 MG/1 ML SDV IV SCH (22:00)
--- NOTE | 2018-08-05 22:00 | Operative Report ---
Operative Report DATE OF SURGERY: 08/05/18 PREOPERATIVE DIAGNOSIS: 1. Intrauterine at 37-3/7 weeks. 2. Previous section. 3. Preeclampsia. 4. GBS positive. 5. Anemia. 6. Desires permanent sterilization. 7. Rh+. 8. Rubella immune POSTOPERATIVE DIAGNOSIS: Same OPERATION: 1. Repeat section. 2. Bilateral tubal interruption with Filshie clips SURGEON: YOBANI RAZA ANESTHESIA: Spinal TISSUE REMOVED OR ALTERED: Placenta COMPLICATIONS: None ESTIMATED BLOOD LOSS: 600 ml INTRAOPERATIVE FINDINGS: Female in a cephalic position with nuchal cord x1; Apgars 8, 9 with a weight of 5 pounds 14 ounces; normal appearing uterus, bilateral tubes and ovaries PROCEDURE: The patient was taken to the operating room where spinal anesthesia was obtained and found to be adequate. She was then prepped and draped in the normal sterile fashion and placed in the dorsal supine position with a leftward tilt. A Pfannenstiel skin incision was then made and carried through to the underlying layers of the fascia with the scalpel. The fascia was incised in the midline and the incision extended laterally with the Gomez scissors. The superior aspect of the fascial incision was then grasped with [place] clamps elevated and the underlying rectus muscles dissected off both bluntly and sharply. Attention was then turned to the inferior aspect of the fascial incision which in a similar fashion was grasped, tented up with [place] clamps, and the rectus muscles dissected off both bluntly and sharply. The rectus muscles were then in the midline and the peritoneum at the amount identified and entered [bluntly]. The peritoneal incision was then extended superiorly and inferiorly with good visualization of the bladder. The bladder blade was inserted and the vesicouterine peritoneum identified grasped with [place] pickups and entered sharply with the Metzenbaum scissors. This incision was then extended laterally with the Metzenbaum scissors and a bladder flap created digitally. The bladder blade was then reinserted and the lower uterine segment incised in a transverse fashion with the scalpel. The uterine incision was then extended bluntly and with th bandage scissors. The bladder blade was removed and the infant's head was delivered from cephalic presentation atraumatically. The nose and mouth were suctioned and the cord doubly clamped and cut. The infant was handed off to waiting pediatricians. The placenta was then delivered manually and the uterus exteriorized and cleared of all clots and debris. The uterine incision was then repaired with 0 Vicryl in a running locked fashion. 0-Chromic was used to obtain hemostasis via imbrication of the initial layer. Attention was then turned to her permanent sterilization with the right fallopian tube was grasped with a [place] and followed through to the fimbriated end of the tube. A Filshie clip was then placed in the midportion of the fallopian tube. Hemostasis was noted. The same procedure was performed on the left fallopian tube and hemostasis was also noted. Abdomen was then copiously irrigated with warm normal saline and the uterus was returned to the patient's abdomen. A piece of Interceed was placed overlying the uterine incision, as well as a piece placed vertically on the anterior surface of the uterus, to prevent adhesions. The gutters were cleared of all clots and debris. All operative sites were noted to be hemostatic. The fascia was reapproximated with 0 Vicryl in a running fashion from each lateral edge to the midline. The subcutaneous fat layer was then closed in an interrupted fashion with 3-0 vicryl. The skin was closed with 4-0 Monocryl in a running, subcuticular fashion. The patient tolerated the procedure well. Sponge, lap, needle and instrument counts are correct x 2. 2 g of Ancef were given prior to skin incision. The patient was taken to the recovery area awake and in stable condition.
[2018-08-05] MEDS ORDERED: ACETAMINOPHEN 1,000 MG/100 ML RTUPB IV ONE (22:07)
[2018-08-05] MEDS ORDERED: MEPERIDINE HCL/PF INJ 25 MG/1 ML DISP.SYRIN ONE (22:28)
[2018-08-05] MEDS ORDERED: KETOROLAC TROMETHAMINE INJ/PF 30 MG/1 ML SDV ONE (23:12)
[2018-08-05] MEDS: KETOROLAC TROMETHAMINE INJ/PF 30 MG/1 ML SDV IV SCH (23:19)
[2018-08-06] MEDS: HYDROMORPHONE HCL INJ/PF 2 MG/ML AMPULE IV PRN ×2 (01:31→07:59)
[2018-08-06] MEDS: KETOROLAC TROMETHAMINE INJ/PF 30 MG/1 ML SDV IV SCH ×2 (05:11→13:14)
[2018-08-06] MEDS: OXYCODONE-ACETAMINOPHEN 5-325 MG TABLET PO PRN ×2 (08:15→17:05)
[2018-08-06 08:35] LABS: HEMATOCRIT 26.6 % (36.0-47.0); HEMOGLOBIN 8.7 g/dL (12.0-15.5); MEAN CORPUSCULAR HEMOGLOBIN 25.3 pg (27.0-33.4); MEAN CORPUSCULAR HGB CONC 32.6 g/dL (32.0-36.0); MEAN CORPUSCULAR VOLUME 77 fl (80-97); PLATELET COUNT 183 10^3/uL (150-450); RED BLOOD COUNT 3.43 10^6/uL (3.72-5.28); RED CELL DISTRIBUTION WIDTH 16.2 % (11.5-14.0); WHITE BLOOD COUNT 10.4 10^3/uL (4.0-10.5)
--- NOTE | 2018-08-06 08:50 | PDOC PROGRESS REPORT ---
Subjective-OB Progress Note for:: 08/06/18 Subjective: pt c/o being sore Physical Exam (OB) Vital Signs: Temp Pulse Resp BP Pulse Ox 97.6 F 93 16 104/72 99 08/06/18 08:23 08/06/18 08:23 08/06/18 08:23 08/06/18 08:23 08/06/18 08:23 Intake & Output 08/05/18 08/06/18 08/07/18 06:59 06:59 06:59 Output Total 200 Balance -200 Weight 106 kg - General General Appearance: Appears well - PIH/Pre-Eclampsia DTR's: 2 + Clonus: Negative Headache: Absent Epigastric Pain: No Visual Changes: No - Dressing Removed: No Incision: Dressing Closure Type: pressure d - Lochia Lochia Amount: Scant < 10 ml Lochia Color: Rubra/Red - Abdomen Description: Tender, Soft Hernia Present: No Bowel Sounds: Normoactive Flatus Presence: Absent Fundal Description: Firm Fundal Height: u/u - u/2 - Respiratory Breath sounds: Clear - Extremities Calf: Normal Objective-Diagnostic Laboratory: 08/06/18 07:54 08/05/18 19:08 08/04/18 08/05/18 08/05/18 17:45 19:08 19:08 WBC 8.1 RBC 3.89 Hgb 9.6 L Hct 30.2 L MCV 78 L MCH 24.7 L MCHC 31.8 L RDW 15.8 H Plt Count 213 Seg Neutrophils % 64.9 Lymphocytes % 22.6 Monocytes % 10.8 Eosinophils % 1.6 Basophils % 0.1 Absolute Neutrophils 5.3 Absolute Lymphocytes 1.8 Absolute Monocytes 0.9 Absolute Eosinophils 0.1 Absolute Basophils 0.0 Sodium 139.2 Potassium 4.1 Chloride 106 Carbon Dioxide 23 Anion Gap 10 BUN 10 Creatinine 0.69 Est GFR ( Amer) > 60 Est GFR (Non-Af Amer) > 60 Glucose 123 H Uric Acid 3.8 Calcium 9.4 Total Bilirubin 0.2 AST 26 ALT 14 Alkaline Phosphatase 116 Total Protein 6.8 Albumin 3.3 L Ur 24 Hour Volume 3160 Ur Total Protein 24 Hr 477 H Blood Type Antibody Screen 08/05/18 08/06/18 19:08 07:54 WBC 10.4 RBC 3.43 L Hgb 8.7 L Hct 26.6 L MCV 77 L MCH 25.3 L MCHC 32.6 RDW 16.2 H Plt Count 183 Seg Neutrophils % Lymphocytes % Monocytes % Eosinophils % Basophils % Absolute Neutrophils Absolute Lymphocytes Absolute Monocytes Absolute Eosinophils Absolute Basophils Sodium Potassium Chloride Carbon Dioxide Anion Gap BUN Creatinine Est GFR ( Amer) Est GFR (Non-Af Amer) Glucose Uric Acid Calcium Total Bilirubin AST ALT Alkaline Phosphatase Total Protein Albumin Ur 24 Hour Volume Ur Total Protein 24 Hr Blood Type A POSITIVE Antibody Screen NEGATIVE Assessment and Plan(PN) - Time Spent with Patient Time with patient: Less than 15 minutes - Disposition Anticipated Discharge: Home Within: within 24 hours, within 48 hours
[2018-08-06] MEDS ORDERED: IRON SUCROSE COMPLEX INJ/PF 100 MG/5 ML SDV IV ONE (09:00)
[2018-08-06] MEDS: PRENATAL VITAMIN W DHA CAPSULE PO SCH (10:18)
[2018-08-06] MEDS: DOCUSATE SODIUM 100 MG CAPSULE PO SCH ×2 (10:18→17:06)
[2018-08-06] MEDS: IBUPROFEN 800 MG TABLET PO PRN (21:52)
[2018-08-07] MEDS: IBUPROFEN 800 MG TABLET PO PRN (04:03)
[2018-08-07] MEDS: DOCUSATE SODIUM 100 MG CAPSULE PO SCH (10:04)
[2018-08-07] MEDS: PRENATAL VITAMIN W DHA CAPSULE PO SCH (10:04)
--- NOTE | 2018-08-07 10:44 | PDOC DISCHARGE SUMMARY ---
Final Diagnosis Discharge Date: 08/07/18 - Final Diagnosis (1) Pre-eclampsia Is this a current diagnosis for this admission?: Yes (2) delivery delivered Is this a current diagnosis for this admission?: Yes Discharge Data - Discharge Medication Home Medications: Vit No.124/Iron/Folic [ Vitamin Tablet] 1 each PO DAILY Metronidazole [Flagyl] 500 mg PO DAILY 08/04/18 Ferrous Sulfate [Iron] 325 mg PO DAILY 08/05/18 Reason(s) for Admission: Ceasarean Section-Repeat, Obstetric Complications Procedures: NST Intrapartum Procedure(s): : Low Cervical, Transverse - Diagnosis Test Laboratory: Temp Pulse Resp BP Pulse Ox 98.2 F 90 18 112/66 97 08/07/18 08:05 08/07/18 08:05 08/07/18 08:05 08/07/18 08:05 08/07/18 08:05 08/05/18 08/06/18 19:08 07:54 RBC 3.89 3.43 L Hgb 9.6 L 8.7 L Hct 30.2 L 26.6 L - Discharge information/Instructions Discharge Activity: Balance Activity w/Rest, No Lifting Over 10 Pounds, No Lifting/Push/Pulling, Pelvic Rest, No tub bath Discharge Diet: Regular Disposition: HOME, SELF-CARE Follow [facility] with: [facility] in: 5, Days
[2018-08-07 11:30] VITALS: BP 112/71
[2018-08-07] MEDS: OXYCODONE-ACETAMINOPHEN 5-325 MG TABLET PO PRN (12:29)
== END 2018-08-07 15:20 | disposition home or self-care (01) | DRG 785 ==
LOC: LC 17:37 → LR 18:52 → 2S 23:49
PROVIDERS: ADMIT Obstetrics & Gynecology; ATTEND Obstetrics & Gynecology
PROC: 10D00Z1 Extraction of Products of Conception, Low, Open Approach (ICD-10-PCS; principal; 2018-08-05)
PROC: 0UL70CZ Occlusion of Bilateral Fallopian Tubes with Extraluminal Device, Open Approach (ICD-10-PCS; 2018-08-05)
PROC: 4A1HXCZ Monitoring of Products of Conception, Cardiac Rate, External Approach (ICD-10-PCS; 2018-08-05)
DX: O14.04 Mild to moderate pre-eclampsia, complicating childbirth (principal); Z30.2 Encounter for sterilization; O99.824 Streptococcus B carrier state complicating childbirth; Z91.018 Allergy to other foods; Z91.010 Allergy to peanuts; Z3A.37 37 weeks gestation of pregnancy; Z37.0 Single live birth
CPT/HCPCS: 1961; 36415; 80053; 83615; 84156; 84550; 85025; 85027; 86592; 86850; 86900; 86901; 88307; 94760; 94799; C1765; J0131; J0690; J1170; J1756; J1885; J2175; J2250; J2270; J2405; J2550; J2590; J3010; J3490; J7120